=== PATIENT | female | born 1985 | race Caucasian/White ===

== ENCOUNTER 2019-11-23 11:08 | Emergency (ER) | payer OTHER ==
[~2019-11-23] VITALS: Ht 162.6 cm; Wt 82.1 kg
[2019-11-23 11:17] VITALS: BP 146/100
--- NOTE | 2019-11-23 11:23 | NUR ---
AMB TO BED 10
[2019-11-23] MEDS ORDERED: KETOROLAC 60 MG/2 ML VIAL IM ONE (11:30)
--- NOTE | 2019-11-23 11:30 | NUR ---
34 Y/O F C/O HIGH BLOOD PRESSURE TAKEN AT HER DOCTORS OFFICE PRIOR TO ARRIVING IN THE ED TODAY. PT STATES HER B/P HAS BEEN ELEVATED X 3 DAYS. PT STATES MAGANA 08/09. PT ON MONITOR, VS STABLE. PT POSITIONED FOR COMFORT, BED LOWERED. DAUGHTER AT BEDSIDE. NANCY
[2019-11-23 12:55] LABS: BASOPHILS % (AUTO) 0.2 % (0.0-2.0); EOSINOPHILS # (AUTO) 0.1 K/uL (0-0.4); EOSINOPHILS % (AUTO) 1.7 % (0.0-4.0); HEMATOCRIT 37.3 % (36-48); HEMOGLOBIN 12.2 g/dL (12.0-16.0); LYMPHOCYTES # (AUTO) 2.3 K/uL (2.5-16.5); LYMPHOCYTES % (AUTO) 27.8 % (20.5-51.1); MEAN CORPUSCULAR HEMOGLOBIN 28 pg (27-31); MEAN CORPUSCULAR HGB CONC 33 g/dL (33-37); MEAN CORPUSCULAR VOLUME 84.5 fL (80-94); MONOCYTES # (AUTO) 0.4 K/uL (0.8-1.0); MONOCYTES % (AUTO) 4.8 % (1.7-9.3); NEUTROPHILS # (AUTO) 5.4 K/uL (1.8-7.7); NEUTROPHILS % (AUTO) 65.5 % (42.2-75.2); PLATELET COUNT (AUTO) 294 K/uL (140-450); RED BLOOD CELL COUNT(AUTO) 4.41 MIL/uL (4.20-5.40); RED CELL DISTRIBUTION WIDTH 13.5 % (11.6-13.7); WHITE BLOOD COUNT (AUTO) 8.2 K/uL (4.8-10.8)
[2019-11-23 13:13] LABS: ANION GAP 10.4 (8-16); CARBON DIOXIDE 28.5 mmol/L (21-32); CREATININE 0.8 mg/dL (0.6-1.3); POTASSIUM 3.9 mmol/L (3.5-5.1)
[2019-11-23 13:30] LABS: ALBUMIN 3.2 g/dL (3.4-5.0); TOTAL BILIRUBIN 0.5 mg/dL (0.0-1.0)
--- NOTE | 2019-11-23 13:59 | NUR ---
PT RESTING COMFORTABLY, VSS, INFORMED WAITING FOR TEST RESULTS TO RETURN.
--- NOTE | 2019-11-23 14:47 | NUR ---
NADR, PAIN 5/10 H/A
[2019-11-23 14:48] VITALS: BP 130/86
--- NOTE | 2019-11-23 14:48 | NUR ---
Patient discharged with v/s stable. Written and verbal after care instructions given and explained REGARDIGN H/A AND HYPERTENSION. Patient alert, oriented and verbalized understanding of instructions. Ambulatory with steady gait. All questions addressed prior to discharge. ID band removed. Patient advised to follow up with PMD. Rx of MOTRIN 800 MG 3 X A DAY given. Patient educated on indication of medication including possible reaction and side effects. Opportunity to ask questions provided and answered. INSTRUCTED TO FOLLOW UP WITH PCP REGARDING CHANGE IN BP MEDICATION IV REMOVED
== END 2019-11-23 14:48 | disposition home or self-care (01) ==
LOC: MED 11:08
DX: R51 Headache (principal); I10 Essential (primary) hypertension
CPT/HCPCS: 36415; 80053; 81002; 84484; 85025; 96372; 99283; J1885